=== PATIENT | female | born 1940 | race Caucasian/White ===

== ENCOUNTER 2021-08-19 20:29 | Inpatient (IN) | payer MEDICARE, BC ==
[~2021-08-19] VITALS: Ht 157.5 cm; Wt 58.7 kg
[2021-08-19 20:00] VITALS: BP 150/85
[2021-08-19] MEDS ORDERED: LINZESS145 MCG PO (21:20)
[2021-08-19] MEDS ORDERED: SENN-82 PO (21:21)
[2021-08-19] MEDS ORDERED: hydrALAZINE 20 MG/ML VIAL. IVP PRN (21:30)
[2021-08-19] MEDS ORDERED: ONDANSETRON PF 4 MG/2 ML VIAL. IVP PRN (21:30)
[2021-08-19] MEDS ORDERED: SENNOSIDES/DOCUSATE 8.6/50MG TABLET. PO PRN (21:30)
[2021-08-19] MEDS ORDERED: IV NORMAL SALINE 1000ML BAG 1,000 ML IV SCH (21:30)
[2021-08-19] MEDS ORDERED: traMADol 50 MG TABLET PO PRN (21:30)
[2021-08-19] MEDS ORDERED: POLYETHYLENE GLYCOL 3350 17 GM PACKET. PO PRN (21:30)
[2021-08-19] MEDS ORDERED: ACETAMINOPHEN 325 MG TABLET. PO PRN (21:30)
[2021-08-19] MEDS: fentaNYL PF VIAL 100 MCG/2 ML VIAL IVP PRN (22:04)
[2021-08-19 23:00] VITALS: BP 135/75
[2021-08-19] MEDS: PSYLLIUM HUSK (SUGAR FREE) 1 PKT PACKET PO SCH (23:33)
[2021-08-20] VITALS (8 sets, daily range): BP systolic 112–132; BP diastolic 59–78
[2021-08-20 04:12] LABS: HEMATOCRIT 33.1 % (36.0-47.0); HEMOGLOBIN 11.1 g/dL (12.0-15.5); RED BLOOD COUNT 3.71 x10^6/uL (3.50-5.40); RED CELL DISTRIBUTION WIDTH 14.4 % (11.5-14.5); WHITE BLOOD COUNT 8.9 x10^3/uL (4.0-11.0)
[2021-08-20 04:33] LABS: CREATININE 0.6 mg/dL (0.6-1.0); GFR 95.7; POTASSIUM 3.6 mmol/L (3.5-5.1)
[2021-08-20] MEDS: fentaNYL PF VIAL 100 MCG/2 ML VIAL IVP PRN ×3 (04:38→12:25)
[2021-08-20 06:50] LABS: BILIRUBIN,URINE NEGATIVE (NEG); CLARITY,URINE CLEAR; COLOR,URINE YELLOW; NITRITE,URINE NEGATIVE (NEG); PROTEIN,URINE NEGATIVE (NEG-TRACE); UROBILINOGEN,URINE 0.2 mg/dL (0.2 mg/dL)
[2021-08-20 07:32] LABS: BACTERIA,URINE 0 /HPF (0-FEW); WBC,URINE 0 /HPF (0-4)
[2021-08-20] MEDS ORDERED: fentaNYL PF VIAL 100 MCG/2 ML VIAL IVP PRN ×3 (08:45→16:00)
[2021-08-20] MEDS ORDERED: PROCHLORPERAZINE 10 MG/2 ML VIAL. IVP PRN (08:45)
[2021-08-20] MEDS ORDERED: MORPHINE SULFATE 2 MG/ML INJ. IVP PRN ×2 (08:45→16:00)
[2021-08-20] MEDS ORDERED: IV RINGERS,LACTATED 1000ML 1,000 ML IV SCH (08:45)
--- NOTE | 2021-08-20 08:59 | PDOC2 ---
CONSULT Date of Consult Date of Consult DATE: 08/20/21 TIME: 08:55 Reason for Consult Reason for Consult: Left comminuted Intertrochanteric hip fracture Referring Physician Referring Physician: ED Identification/Chief Complaint Chief Complaint Left Hip Pain secondary to Left hip Fracture History of Present Illness Reason for Visit: This is a well-appearing 82-year-old very active female who presents to the emergency department with chief complaint of a fall onto her left hip. Seen and examined in the emergency department x-rays were obtained which showed a comminuted left intertrochanteric hip fracture. She was admitted to the hospital under the hospitalist care with orthopedics to follow. Orthopedics was contacted x-rays were reviewed she was scheduled for a left hip open reduction internal fixation. Current Medications Current Medications Current Medications Acetaminophen (Tylenol) 650 mg PRN Q6HRS PRN PO MILD PAIN / TEMP > 100.3'F; Start 08/19/21 at 21:30 Tramadol HCl (Ultram) 50 mg PRN Q6HRS PRN PO PAIN MOD/SEV; Start 08/19/21 at 21:30 Ondansetron HCl (Zofran) 4 mg PRN Q4HRS PRN IVP NAUSEA/VOMITING; Start 08/19/21 at 21:30 Psyllium Hydrophilic Mucilloid (Metamucil Fiber Packet) 1 pkt QHS PO Last administered on 08/19/21at 23:33; Start 08/19/21 at 23:45 Hydralazine HCl (Apresoline Inj) 10 mg PRN Q4HRS PRN IVP ELEVATED BP, SEE COMMENTS; Start 08/19/21 at 21:30 Fentanyl Citrate (Fentanyl 2ml Vial) 25 mcg PRN Q3HRS PRN IVP PAIN Last administered on 08/20/21at 04:38; Start 08/19/21 at 21:30 Senna/Docusate Sodium (Senna Plus) 2 tab PRN BID PRN PO CONSTIPATION 2ND CHOICE; Start 08/19/21 at 21:30 Polyethylene Glycol (miraLAX PACKET) 17 gm PRN DAILY PRN PO CONSTIPATION 1ST CHOICE; Start 08/19/21 at 21:30 Sodium Chloride 1,000 ml @ 100 mls/hr Q10H IV Last administered on 08/19/21at 22:03; Start 08/19/21 at 21:30; Stop 08/20/21 at 07:29; Status DC Trazodone HCl (Desyrel) 50 mg PRN QHS PRN PO INSOMNIA; Start 08/19/21 at 21:30 Fentanyl Citrate (Fentanyl 2ml Vial) 25 mcg PRN Q5MIN PRN IVP MILD PAIN 1-3; Start 08/20/21 at 08:45; Stop 08/21/21 at 08:44 Fentanyl Citrate (Fentanyl 2ml Vial) 50 mcg PRN Q5MIN PRN IVP MODERATE PAIN 4- 6; Start 08/20/21 at 08:45; Stop 08/21/21 at 08:44 Morphine Sulfate (Morphine Sulfate) 1 mg PRN Q10MIN PRN IVP SEVERE PAIN 7-10; Start 08/20/21 at 08:45; Stop 08/21/21 at 08:44 Ringer's Solution 1,000 ml @ 30 mls/hr Q24H IV ; Start 08/20/21 at 08:45; Stop 08/20/21 at 20:44 Hydromorphone HCl (Dilaudid) 0.5 mg PRN Q10MIN PRN IVP SEVERE PAIN 7-10, 2nd CHOICE; Start 08/20/21 at 08:45; Stop 08/21/21 at 08:44 Prochlorperazine Edisylate (Compazine) 5 mg PACU PRN PRN IVP NAUSEA, MRX1; Start 08/20/21 at 08:45; Stop 08/21/21 at 08:44 Active Scripts Active Reported Senna S Tablet (Sennosides/Docusate Sodium) 1 Each Tablet 1 Each PO HS Linzess (Linaclotide) 145 Mcg Capsule 145 Mcg PO DAILY07 Allergies Allergies: Coded Allergies: No Known Drug Allergies (Unverified , 08/19/21) Physical Exam Physical Exam Patient was seen and examined today, her daughter was at the bedside, she was awake up and alert answering questions appropriately. Her examination of the left lower extremity reveals that she did have external rotation and shortening of the left lower extremity. She was neurovascularly intact, she had no calf tenderness, her skin was intact, her EHL and FHL were sustained and intact. There were no other obvious deformities. She did complain of some left forearm pain x-rays were negative. Vitals VITALS Vital Signs Date Time Temp Pulse Resp B/P (MAP) Pulse Ox O2 Delivery O2 Flow Rate FiO2 08/20/21 05:08 20 Room Air 08/20/21 03:00 98.1 96 126/71 (89) 94 98.1 Labs Labs Laboratory Tests Test 08/20/21 04:00 08/20/21 04:35 White Blood Count 8.9 x10^3/uL (4.0-11.0) Red Blood Count 3.71 x10^6/uL (3.50-5.40) Hemoglobin 11.1 g/dL (12.0-15.5) Hematocrit 33.1 % (36.0-47.0) Mean Corpuscular Volume 89 fL (79-100) Mean Corpuscular Hemoglobin 30 pg (25-35) Mean Corpuscular Hemoglobin Concent 34 g/dL (31-37) Red Cell Distribution Width 14.4 % (11.5-14.5) Platelet Count 212 x10^3/uL (140-400) Sodium Level 136 mmol/L (136-145) Potassium Level 3.6 mmol/L (3.5-5.1) Chloride Level 102 mmol/L (98-107) Carbon Dioxide Level 24 mmol/L (21-32) Anion Gap 10 (6-14) Blood Urea Nitrogen 13 mg/dL (7-20) Creatinine 0.6 mg/dL (0.6-1.0) Estimated GFR (Cockcroft-Gault) 95.7 Glucose Level 122 mg/dL (70-99) Calcium Level 8.0 mg/dL (8.5-10.1) Urine Collection Type Unknown Urine Color Yellow Urine Clarity Clear Urine pH 5.0 (<5.0-8.0) Urine Specific [place] 1.015 (1.000-1.030) Urine Protein Negative mg/dL (NEG-TRACE) Urine Glucose (UA) Negative mg/dL (NEG) Urine Ketones (Stick) 40 mg/dL (NEG) Urine Blood Large (NEG) Urine Nitrite Negative (NEG) Urine Bilirubin Negative (NEG) Urine Urobilinogen Dipstick 0.2 mg/dL (0.2 mg/dL) Urine Leukocyte Esterase Negative (NEG) Urine RBC 6-10 /HPF (0-2) Urine WBC 0 /HPF (0-4) Urine Squamous Epithelial Cells Occ /LPF Urine Bacteria 0 /HPF (0-FEW) Laboratory Tests Test 08/20/21 04:00 08/20/21 04:35 White Blood Count 8.9 x10^3/uL (4.0-11.0) Red Blood Count 3.71 x10^6/uL (3.50-5.40) Hemoglobin 11.1 g/dL (12.0-15.5) Hematocrit 33.1 % (36.0-47.0) Mean Corpuscular Volume 89 fL (79-100) Mean Corpuscular Hemoglobin 30 pg (25-35) Mean Corpuscular Hemoglobin Concent 34 g/dL (31-37) Red Cell Distribution Width 14.4 % (11.5-14.5) Platelet Count 212 x10^3/uL (140-400) Sodium Level 136 mmol/L (136-145) Potassium Level 3.6 mmol/L (3.5-5.1) Chloride Level 102 mmol/L (98-107) Carbon Dioxide Level 24 mmol/L (21-32) Anion Gap 10 (6-14) Blood Urea Nitrogen 13 mg/dL (7-20) Creatinine 0.6 mg/dL (0.6-1.0) Estimated GFR (Cockcroft-Gault) 95.7 Glucose Level 122 mg/dL (70-99) Calcium Level 8.0 mg/dL (8.5-10.1) Urine Collection Type Unknown Urine Color Yellow Urine Clarity Clear Urine pH 5.0 (<5.0-8.0) Urine Specific [place] 1.015 (1.000-1.030) Urine Protein Negative mg/dL (NEG-TRACE) Urine Glucose (UA) Negative mg/dL (NEG) Urine Ketones (Stick) 40 mg/dL (NEG) Urine Blood Large (NEG) Urine Nitrite Negative (NEG) Urine Bilirubin Negative (NEG) Urine Urobilinogen Dipstick 0.2 mg/dL (0.2 mg/dL) Urine Leukocyte Esterase Negative (NEG) Urine RBC 6-10 /HPF (0-2) Urine WBC 0 /HPF (0-4) Urine Squamous Epithelial Cells Occ /LPF Urine Bacteria 0 /HPF (0-FEW) Images Images comminuted left intertrochanteric hip fracture Assessment/Plan Assessment/Plan Patient was seen and examined today, daughter at her bedside, risks and complications of a left hip open reduction internal fixation were discussed with her in great detail as well as her daughter, all questions were answered to the best of the surgeons ability, she will be nonweightbearing until after surgery, she is n.p.o., pain control, consent for open reduction internal fixation left hip, she will be admitted back to the hospital for antibiotics ice elevation as well as physical therapy occupational therapy and case management. ALANA MCDONALD DO Aug 20, 2021 08:59
--- NOTE | 2021-08-20 10:11 | PDOC ---
GENERAL General: History and physical [id number] VITAL SIGNS Vital Signs/I&O: Vital Signs Date Time Temp Pulse Resp B/P (MAP) Pulse Ox O2 Delivery O2 Flow Rate FiO2 08/20/21 08:56 Room Air 08/20/21 07:00 97.8 73 16 132/63 (86) 95 97.8 I & O 08/19/21 08/19/21 08/20/21 15:00 23:00 07:00 Intake Total 0 ml 100 ml Output Total 300 ml Balance 0 ml -200 ml ALLERGIES Allergies: Allergies Coded Allergies Type Severity Reaction Last Updated Verified No Known Drug Allergies 08/19/21 No MEDS Medications: Current Medications Medications (Trade) Dose Ordered Sig/Camron Route PRN Reason Start Time Stop Time Status Last Admin Dose Admin Psyllium Hydrophilic Mucilloid (Metamucil Fiber Packet) 1 pkt QHS PO 08/19/21 23:45 08/19/21 23:33 Fentanyl Citrate (Fentanyl 2ml Vial) 25 mcg PRN Q3HRS PRN IVP PAIN 08/19/21 21:30 08/20/21 08:56 Sodium Chloride 1,000 ml @ 100 mls/hr Q10H IV 08/19/21 21:30 08/20/21 07:29 DC 08/19/21 22:03 LAB Lab: Laboratory Tests Test 08/20/21 04:00 08/20/21 04:35 White Blood Count 8.9 x10^3/uL (4.0-11.0) Red Blood Count 3.71 x10^6/uL (3.50-5.40) Hemoglobin 11.1 g/dL (12.0-15.5) L Hematocrit 33.1 % (36.0-47.0) L Mean Corpuscular Volume 89 fL (79-100) Mean Corpuscular Hemoglobin 30 pg (25-35) Mean Corpuscular Hemoglobin Concent 34 g/dL (31-37) Red Cell Distribution Width 14.4 % (11.5-14.5) Platelet Count 212 x10^3/uL (140-400) Sodium Level 136 mmol/L (136-145) Potassium Level 3.6 mmol/L (3.5-5.1) Chloride Level 102 mmol/L (98-107) Carbon Dioxide Level 24 mmol/L (21-32) Anion Gap 10 (6-14) Blood Urea Nitrogen 13 mg/dL (7-20) Creatinine 0.6 mg/dL (0.6-1.0) Estimated GFR (Cockcroft-Gault) 95.7 Glucose Level 122 mg/dL (70-99) H Calcium Level 8.0 mg/dL (8.5-10.1) L Urine Collection Type Unknown Urine Color Yellow Urine Clarity Clear Urine pH 5.0 (<5.0-8.0) Urine Specific [place] 1.015 (1.000-1.030) Urine Protein Negative mg/dL (NEG-TRACE) Urine Glucose (UA) Negative mg/dL (NEG) Urine Ketones (Stick) 40 mg/dL (NEG) Urine Blood Large (NEG) Urine Nitrite Negative (NEG) Urine Bilirubin Negative (NEG) Urine Urobilinogen Dipstick 0.2 mg/dL (0.2 mg/dL) Urine Leukocyte Esterase Negative (NEG) Urine RBC 6-10 /HPF (0-2) Urine WBC 0 /HPF (0-4) Urine Squamous Epithelial Cells Occ /LPF Urine Bacteria 0 /HPF (0-FEW) Laboratory Tests 08/20/21 04:00 Laboratory Tests 08/20/21 04:00 Justifications for Admission General Conditions Other justification for admit: fracture Other Justification MILDRED NICOLE MD Aug 20, 2021 10:11
[2021-08-20] MEDS: ENOXAPARIN 40 MG/0.4 ML SYRINGE. SQ SCH (11:00)
--- NOTE | 2021-08-20 11:07 | HP ---
DATE OF SERVICE: 08/20/2021 ADMIT DATE: 08/19/2021 HISTORY OF PRESENT ILLNESS: This patient is a yesica 81-year-old woman who is a continuity outpatient of Dr. Demetrius Gorman in [place], [place]. She is accompanied at bedside by her daughter, [place] and her daughter, Litzy, is coming in. 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 The patient enjoys excellent health for her years. Was at a social gathering actually at her doctor's home last evening when she tripped and fell over a hidden stair sustaining a left hip fracture. She is very frustrated by this given that she has never been in the hospital. She is quite anxious about her situation, though does recognize that accidents do happen. She denies any preceding symptoms to the fall including no chest pain, no palpitations, no headache, no shortness of breath, no nausea or vomiting. She enjoys very vigorous health for her 81 years. She has been seen by Orthopedics already and plan is for surgical repair today. REVIEW OF SYSTEMS: All other systems reviewed and negative. PAST MEDICAL HISTORY: IBS, constipation. The patient denies any cardiopulmonary history. She has never had any surgery. MEDICATIONS: Please see the medication reconciliation form. SOCIAL HISTORY: The patient is . 3 years ago. She lives independently in her own home and daughters check up on her regularly. She does not take any tobacco, alcohol or illicit drugs. The patient is a full code. FAMILY HISTORY: Reviewed in full and noncontributory to the present illness. PHYSICAL EXAMINATION: VITAL SIGNS: Reviewed since admission and are notable for that the patient has been afebrile. Blood pressure has been in the 120s/70s, heart rate is in the 70s-90s and regular. She is breathing comfortably and saturating 95% on room air. GENERAL: She is a pleasant 81-year-old woman, alert and oriented x 3, in no acute distress. HEENT: Unremarkable. NECK: Soft and supple. No adenopathy or thyromegaly noted. CHEST: Clear to auscultation. HEART: S1, S2 normal. Regular rate and rhythm. No murmurs or gallops are noted. ABDOMEN: Soft, nontender, and nondistended. No masses or organomegaly noted. EXTREMITIES: Notable for a shortened outward turned left lower extremity. Pulses are intact. No edema, rashes or lesions are noted. LABS AND OTHER STUDIES: Reviewed from [facility] Emergency Department. EKG is reportedly normal. I cannot find a copy of it in the files here. Left humerus x-ray is normal. Left hip x-ray is notable for an impacted comminuted fracture of the left intertrochanteric femur. Labs are notable for a white count of 12.3, hemoglobin of 12.6, and platelet count of 248. Calcium level is 8.8, random glucose 111, and creatinine is 0.9. Electrolytes are unremarkable. ASSESSMENT AND PLAN/IMPRESSION: An 81-year-old woman sustaining a mechanical fall resulting in a left hip fracture late yesterday afternoon, planning on operative repair today. Orthopedic assistance is appreciated. Inpatient status is most appropriate as we anticipate a length of stay of at least 2-3 midnights while we work this through. The patient does live alone, though she does have excellent family support. We will need to consult social media director and Physical and Occupational Therapy to help with disposition planning following the repair. We will use sequential compression devices for deep vein thrombosis prophylaxis and defer to Orthopedics regarding perioperative deep vein thrombosis prophylaxis. Certainly low-dose Lovenox would be appropriate in her situation. We will continue her home medications per prior postoperatively. ALLIE/RAIN/SOT DR: ALLIE/nts TID: [id number] CC: Mayra PICKERING
[2021-08-20] MEDS ORDERED: ceFAZolin SODIUM IV Push 1 GM VIAL. IVP PRN (12:00)
[2021-08-20] MEDS ORDERED: MIDAZOLAM HCL/PF 2 MG/2 ML VIAL. ONE (13:27)
[2021-08-20] MEDS ORDERED: MIDAZOLAM HCL/PF 5 MG/5 ML VIAL. IVP ONE (13:45)
[2021-08-20] MEDS ORDERED: LIDOCAINE 2% PF 5 ML VIAL. ONE (14:16)
[2021-08-20] MEDS ORDERED: DEXAMETHASONE SOD PHOS 4 MG/ML VIAL ONE (14:16)
[2021-08-20] MEDS ORDERED: PROPOFOL 10 MG/ML (20ML) VIAL. IV ONE (14:16)
[2021-08-20] MEDS ORDERED: ONDANSETRON PF 4 MG/2 ML VIAL. ONE (14:17)
[2021-08-20] MEDS ORDERED: fentaNYL PF VIAL 100 MCG/2 ML VIAL ONE ×2 (14:18→16:23)
[2021-08-20] MEDS ORDERED: ceFAZolin SODIUM IV Push 1 GM VIAL. IVP ONE ×2 (15:20)
[2021-08-20] MEDS ORDERED: SEVOFLURANE 31 TO 60 MINUTES. IH ONE (15:21)
[2021-08-20] MEDS ORDERED: PHENYLEPHRINE in 0.9% NACL PF 1 MG/10 ML SYRINGE. IV ONE (15:29)
[2021-08-20] MEDS ORDERED: ePHEDrine PF IN SALINE 50 MG/10 ML SYRINGE. IV ONE (15:29)
[2021-08-20] MEDS ORDERED: DEXTROSE 50% 25 GM / 50ML DISP.SYRIN. IV PRN (16:00)
[2021-08-20] MEDS ORDERED: POLYETHYLENE GLYCOL 3350 17 GM PACKET. PO PRN (16:00)
[2021-08-20] MEDS ORDERED: HYDROcodone/APAP 7.5/325MG 1 TAB TABLET PO PRN (16:00)
[2021-08-20] MEDS ORDERED: oxyCODONE IR 5 MG TABLET PO PRN (16:00)
[2021-08-20] MEDS ORDERED: ONDANSETRON PF 4 MG/2 ML VIAL. IVP PRN (16:00)
[2021-08-20] MEDS ORDERED: MORPHINE SULFATE 4 MG/ML INJ. IVP PRN (16:00)
--- NOTE | 2021-08-20 16:08 | PDOC4 ---
OPERATIVE NOTE Pre-Op Diagnosis: Comminuted left intertrochanteric hip fracture Post-Op Diagnosis: Same Procedure Performed: Open reduction internal fixation left hip with [employer] InterTAN nail Surgeon: Ki Kay DO Anesthesia Type: General Blood Loss: 50 mL Specimans Obtained: None Findings: Comminuted inter trochanteric left hip fracture Complications: None Operative Note: Indications: This is a well-appearing 81-year-old very active female who presented to the emergency department after a fall at a friend's house onto her left hip sustaining a comminuted into her trochanteric left hip fracture. She was brought to the emergency department per ambulance where she was seen and examined x-rays were obtained which confirmed the diagnosis. She was admitted to the hospital under the hospitalist care. She was seen and examined by the orthopedic department and scheduled for an open reduction internal fixation of her left hip. Risk and complications of the surgery were discussed with her and her family member in great detail they agreed to risk and complications informed consent was obtained. All questions were answered to the best of the surgeons ability. Procedure: After being properly Genfiber the part of anesthesia her upper extremity was then marked she is and taken from the preoperative care into the operative suite taken from the cart placed onto the table in supine position. After he placed in the supine position general anesthesia was administered to the patient per anesthesia protocol, 1 g Ancef was given to the patient preoperatively she is properly positioned on the fracture table. Closed reduction of the fracture was done under direct fluoroscopic control. After this was completed all bony prominences were padded she was prepped and draped in normal sterile fashion. Final timeout was then performed. After is complete the appropriate starting hole for the [employer] InterTAN nail was identified in the AP and lateral projections. The guidewire was then placed in the appropriate position and confirmed in the AP and lateral positions. The reamer was used over the guidewire a 11.5 mm nail was then placed over and placed in appropriate position. After this was completed the incision was made in the lateral skin for the compression screw. Under direct fluoroscopic control lateral screw was then drilled as well as measured and confirmed in both AP and lateral positions. After this completed the measurement was 110 we took 5 mm off but decided to take 10 instead of 5 for compression. 100 mm screw was then placed in this was confirmed in AP and lateral projections as well. Attention was paid to the distal locking screw which was placed in a normal fashion. After this complete she was irrigated with copious amounts of irrigation final x-rays were completed in AP and lateral projections the incision was then closed with 0 Vicryl 2-0 Vicryl and dax for skin sterile dressing was then applied she was gently wrapped with a part of anesthesia taken from the table placed onto the cart in the supine position having tolerated procedure well to the postoperative care unit. KI KAY DO Aug 20, 2021 16:08
[2021-08-20] MEDS ORDERED: HYDROmorphone 2 MG/ML VIAL ONE (16:10)
[2021-08-20] MEDS: HYDROmorphone 2 MG/ML VIAL IVP PRN ×4 (16:12→16:48)
[2021-08-20] MEDS ORDERED: PROCHLORPERAZINE 10 MG/2 ML VIAL. ONE (16:14)
--- NOTE | 2021-08-20 16:35 | RAD ---
EXAM: Pelvis and left hip, 3 views. HISTORY: Fracture fixation. COMPARISON: None. FINDINGS: A frontal view of the pelvis and 2 views of the left hip are obtained. There is internal fi xation of a left femoral intertrochanteric fracture. There is lumbar scoliosis and degenerative hanson e throughout the lumbar spine, not formally assessed on this exam. There are lateral left hip skin st aples due to recent surgery. IMPRESSION: Internal fixation of a left femoral intertrochanteric fracture. Electronically signed by: Shruti [place] MD (08/20/2021 4:33 PM) [id number]
[2021-08-20] MEDS: PSYLLIUM HUSK (SUGAR FREE) 1 PKT PACKET PO SCH (21:28)
[2021-08-20] MEDS: ceFAZolin SODIUM IV Push 1 GM VIAL. IVP SCH (21:29)
[2021-08-21] MEDS: traZODone 50 MG TABLET. PO PRN ×2 (00:24→20:50)
[2021-08-21 03:00] VITALS: BP 115/63
[2021-08-21] MEDS: HYDROcodone/APAP 7.5/325MG 1 TAB TABLET PO PRN ×3 (03:28→16:33)
[2021-08-21] MEDS: ceFAZolin SODIUM IV Push 1 GM VIAL. IVP SCH ×2 (03:28→08:46)
[2021-08-21 04:37] LABS: BASO % 0 % (0-3); EOS % 0 % (0-3); HEMATOCRIT 30.1 % (36.0-47.0); LYMPH # 0.8 x10^3/uL (1.0-4.8); LYMPH % 11 % (24-48); MEAN CORPUSCULAR HEMOGLOBIN 30 pg (25-35); MEAN CORPUSCULAR HGB CONC 33 g/dL (31-37); MEAN CORPUSCULAR VOLUME 90 fL (79-100); MONO # 0.9 x10^3/uL (0.0-1.1); MONO % 11 % (0-9); NEUT % 78 % (31-73); PLATELET COUNT 187 x10^3/uL (140-400); RED BLOOD COUNT 3.37 x10^6/uL (3.50-5.40); RED CELL DISTRIBUTION WIDTH 14.8 % (11.5-14.5); WHITE BLOOD COUNT 7.7 x10^3/uL (4.0-11.0)
[2021-08-21 05:13] LABS: ALBUMIN 2.7 g/dL (3.4-5.0); ALBUMIN/GLOBULIN RATIO 0.9 (1.0-1.7); CALCIUM 7.9 mg/dL (8.5-10.1); CREATININE 0.6 mg/dL (0.6-1.0); GFR 95.7; TOTAL BILIRUBIN 0.5 mg/dL (0.2-1.0); TOTAL PROTEIN 5.8 g/dL (6.4-8.2)
[2021-08-21] MEDS ORDERED: MAGNESIUM HYDROXIDE 2,400 MG/30 ML ORAL.SUSP. PO PRN (06:00)
[2021-08-21 07:00] VITALS: BP 125/62
--- NOTE | 2021-08-21 07:30 | PDOC ---
ORTHO PROGRESS NOTES DATE: 08/21/21 TIME: 07:28 Subjective Patient doing well postop day 1 from her open reduction internal fixation of her left intertrochanteric hip fracture. She is a little anxious about moving but I encouraged her that the fracture was fixed and that she could get up and move around. She agreed and she is going to physical therapy today. Post-op Day: 1 Procedure Open reduction internal fixation left intertrochanteric hip fracture postop day 1 Vitals Vital Signs Date Time Temp Pulse Resp B/P (MAP) Pulse Ox O2 Delivery O2 Flow Rate FiO2 08/21/21 03:58 20 Room Air 08/21/21 03:00 98.2 97 115/63 (80) 92 98.2 08/20/21 23:00 3.0 Labs Laboratory Tests Test 08/20/21 04:00 08/20/21 04:35 08/21/21 03:35 08/21/21 03:50 White Blood Count 8.9 x10^3/uL (4.0-11.0) 7.7 x10^3/uL (4.0-11.0) Red Blood Count 3.71 x10^6/uL (3.50-5.40) 3.37 x10^6/uL (3.50-5.40) Hemoglobin 11.1 g/dL (12.0-15.5) 10.0 g/dL (12.0-15.5) Hematocrit 33.1 % (36.0-47.0) 30.1 % (36.0-47.0) Mean Corpuscular Volume 89 fL (79-100) 90 fL (79-100) Mean Corpuscular Hemoglobin 30 pg (25-35) 30 pg (25-35) Mean Corpuscular Hemoglobin Concent 34 g/dL (31-37) 33 g/dL (31-37) Red Cell Distribution Width 14.4 % (11.5-14.5) 14.8 % (11.5-14.5) Platelet Count 212 x10^3/uL (140-400) 187 x10^3/uL (140-400) Sodium Level 136 mmol/L (136-145) 141 mmol/L (136-145) Potassium Level 3.6 mmol/L (3.5-5.1) 4.0 mmol/L (3.5-5.1) Chloride Level 102 mmol/L (98-107) 105 mmol/L (98-107) Carbon Dioxide Level 24 mmol/L (21-32) 27 mmol/L (21-32) Anion Gap 10 (6-14) 9 (6-14) Blood Urea Nitrogen 13 mg/dL (7-20) 10 mg/dL (7-20) Creatinine 0.6 mg/dL (0.6-1.0) 0.6 mg/dL (0.6-1.0) Estimated GFR (Cockcroft-Gault) 95.7 95.7 Glucose Level 122 mg/dL (70-99) 119 mg/dL (70-99) Calcium Level 8.0 mg/dL (8.5-10.1) 7.9 mg/dL (8.5-10.1) Urine Collection Type Unknown Urine Color Yellow Urine Clarity Clear Urine pH 5.0 (<5.0-8.0) Urine Specific [place] 1.015 (1.000-1.030) Urine Protein Negative mg/dL (NEG-TRACE) Urine Glucose (UA) Negative mg/dL (NEG) Urine Ketones (Stick) 40 mg/dL (NEG) Urine Blood Large (NEG) Urine Nitrite Negative (NEG) Urine Bilirubin Negative (NEG) Urine Urobilinogen Dipstick 0.2 mg/dL (0.2 mg/dL) Urine Leukocyte Esterase Negative (NEG) Urine RBC 6-10 /HPF (0-2) Urine WBC 0 /HPF (0-4) Urine Squamous Epithelial Cells Occ /LPF Urine Bacteria 0 /HPF (0-FEW) Neutrophils (%) (Auto) 78 % (31-73) Lymphocytes (%) (Auto) 11 % (24-48) Monocytes (%) (Auto) 11 % (0-9) Eosinophils (%) (Auto) 0 % (0-3) Basophils (%) (Auto) 0 % (0-3) Neutrophils # (Auto) 6.0 x10^3/uL (1.8-7.7) Lymphocytes # (Auto) 0.8 x10^3/uL (1.0-4.8) Monocytes # (Auto) 0.9 x10^3/uL (0.0-1.1) Eosinophils # (Auto) 0.0 x10^3/uL (0.0-0.7) Basophils # (Auto) 0.0 x10^3/uL (0.0-0.2) BUN/Creatinine Ratio 17 (6-20) Total Bilirubin 0.5 mg/dL (0.2-1.0) Aspartate Amino Transf (AST/SGOT) 25 U/L (15-37) Alanine Aminotransferase (ALT/SGPT) 21 U/L (14-59) Alkaline Phosphatase 52 U/L (46-116) Total Protein 5.8 g/dL (6.4-8.2) Albumin 2.7 g/dL (3.4-5.0) Albumin/Globulin Ratio 0.9 (1.0-1.7) Laboratory Tests Test 08/21/21 03:35 08/21/21 03:50 White Blood Count 7.7 x10^3/uL (4.0-11.0) Red Blood Count 3.37 x10^6/uL (3.50-5.40) Hemoglobin 10.0 g/dL (12.0-15.5) Hematocrit 30.1 % (36.0-47.0) Mean Corpuscular Volume 90 fL (79-100) Mean Corpuscular Hemoglobin 30 pg (25-35) Mean Corpuscular Hemoglobin Concent 33 g/dL (31-37) Red Cell Distribution Width 14.8 % (11.5-14.5) Platelet Count 187 x10^3/uL (140-400) Neutrophils (%) (Auto) 78 % (31-73) Lymphocytes (%) (Auto) 11 % (24-48) Monocytes (%) (Auto) 11 % (0-9) Eosinophils (%) (Auto) 0 % (0-3) Basophils (%) (Auto) 0 % (0-3) Neutrophils # (Auto) 6.0 x10^3/uL (1.8-7.7) Lymphocytes # (Auto) 0.8 x10^3/uL (1.0-4.8) Monocytes # (Auto) 0.9 x10^3/uL (0.0-1.1) Eosinophils # (Auto) 0.0 x10^3/uL (0.0-0.7) Basophils # (Auto) 0.0 x10^3/uL (0.0-0.2) Sodium Level 141 mmol/L (136-145) Potassium Level 4.0 mmol/L (3.5-5.1) Chloride Level 105 mmol/L (98-107) Carbon Dioxide Level 27 mmol/L (21-32) Anion Gap 9 (6-14) Blood Urea Nitrogen 10 mg/dL (7-20) Creatinine 0.6 mg/dL (0.6-1.0) Estimated GFR (Cockcroft-Gault) 95.7 BUN/Creatinine Ratio 17 (6-20) Glucose Level 119 mg/dL (70-99) Calcium Level 7.9 mg/dL (8.5-10.1) Total Bilirubin 0.5 mg/dL (0.2-1.0) Aspartate Amino Transf (AST/SGOT) 25 U/L (15-37) Alanine Aminotransferase (ALT/SGPT) 21 U/L (14-59) Alkaline Phosphatase 52 U/L (46-116) Total Protein 5.8 g/dL (6.4-8.2) Albumin 2.7 g/dL (3.4-5.0) Albumin/Globulin Ratio 0.9 (1.0-1.7) Notes Patient seen and examined today, she is doing very well no signs or symptoms of infection, neurovascular intact EHL FHL sustained and intact no calf tenderness dressing in place without any drainage. Assessment and Plan Postop day 1 left hip open reduction internal fixation secondary to intertrochanteric hip fracture. She is doing well, no signs of infection, continue your medical care, up in chair and weightbearing as tolerated with walker and assist, physical therapy and Occupational Therapy to assist with activities of daily living. Orthopedically stable for discharge when okay with hospitalist service ALANA MCDONALD DO Aug 21, 2021 07:30
[2021-08-21] MEDS: SENNOSIDES/DOCUSATE 8.6/50MG TABLET. PO SCH (08:46)
--- NOTE | 2021-08-21 10:23 | NUR ---
SW following. Discussed with RN, pt from home alone, room air, NPO. Pt had surgery 08/20. Awaiting PT/OT. COVID PCR requested for possible placement. SW will continue to follow.
[2021-08-21 11:00] VITALS: BP 137/78
[2021-08-21] MEDS: ENOXAPARIN 40 MG/0.4 ML SYRINGE. SQ SCH (11:10)
--- NOTE | 2021-08-21 12:03 | PDOC ---
[employer] PROGRESS NOTE Date of Service DOS: DATE: 08/21/21 TIME: 12:01 Chief Complaint Chief Complaint Postop day 1 open reduction internal fixation left hip fracture IBS Constipation Arthritis Anxiety History of Present Illness History of Present Illness 08/21/2021 Patient seen and examined She is a little anxious about making sure she gets her pain meds prior to physical therapy Discussed with RN Also spoke with the patient's daughter who is her DPOA Chart reviewed Overall patient is doing very well Has clean dry intact dressing Vitals/I&O Vitals/I&O: Vital Signs Date Time Temp Pulse Resp B/P (MAP) Pulse Ox O2 Delivery O2 Flow Rate FiO2 08/21/21 11:09 Room Air 08/21/21 11:00 98.2 107 16 137/78 (97) 92 98.2 08/20/21 23:00 3.0 I & O 08/20/21 08/20/21 08/21/21 15:00 23:00 07:00 Intake Total 50 ml 650 ml Output Total 50 ml 750 ml Balance 0 ml -100 ml Physical Exam General: Alert, Oriented X3 Heart: Regular rate, Normal S1, Normal S2 Lungs: Clear Abdomen: Normal bowel sounds Extremities: No clubbing, No cyanosis, Other (Clean dry intact dressing on the left hip) Skin: No rashes Labs Labs: Laboratory Tests Test 08/21/21 03:35 08/21/21 03:50 White Blood Count 7.7 x10^3/uL (4.0-11.0) Red Blood Count 3.37 x10^6/uL (3.50-5.40) Hemoglobin 10.0 g/dL (12.0-15.5) Hematocrit 30.1 % (36.0-47.0) Mean Corpuscular Volume 90 fL (79-100) Mean Corpuscular Hemoglobin 30 pg (25-35) Mean Corpuscular Hemoglobin Concent 33 g/dL (31-37) Red Cell Distribution Width 14.8 % (11.5-14.5) Platelet Count 187 x10^3/uL (140-400) Neutrophils (%) (Auto) 78 % (31-73) Lymphocytes (%) (Auto) 11 % (24-48) Monocytes (%) (Auto) 11 % (0-9) Eosinophils (%) (Auto) 0 % (0-3) Basophils (%) (Auto) 0 % (0-3) Neutrophils # (Auto) 6.0 x10^3/uL (1.8-7.7) Lymphocytes # (Auto) 0.8 x10^3/uL (1.0-4.8) Monocytes # (Auto) 0.9 x10^3/uL (0.0-1.1) Eosinophils # (Auto) 0.0 x10^3/uL (0.0-0.7) Basophils # (Auto) 0.0 x10^3/uL (0.0-0.2) Sodium Level 141 mmol/L (136-145) Potassium Level 4.0 mmol/L (3.5-5.1) Chloride Level 105 mmol/L (98-107) Carbon Dioxide Level 27 mmol/L (21-32) Anion Gap 9 (6-14) Blood Urea Nitrogen 10 mg/dL (7-20) Creatinine 0.6 mg/dL (0.6-1.0) Estimated GFR (Cockcroft-Gault) 95.7 BUN/Creatinine Ratio 17 (6-20) Glucose Level 119 mg/dL (70-99) Calcium Level 7.9 mg/dL (8.5-10.1) Total Bilirubin 0.5 mg/dL (0.2-1.0) Aspartate Amino Transf (AST/SGOT) 25 U/L (15-37) Alanine Aminotransferase (ALT/SGPT) 21 U/L (14-59) Alkaline Phosphatase 52 U/L (46-116) Total Protein 5.8 g/dL (6.4-8.2) Albumin 2.7 g/dL (3.4-5.0) Albumin/Globulin Ratio 0.9 (1.0-1.7) Review of Systems Review of Systems: Complains of pain Complains of anxiety Assessment and Plan Assessmemt and Plan Postop day 1 open reduction internal fixation left hip fracture IBS Constipation Arthritis Anxiety Plan Wound care Trend labs Home meds DVT prophylaxis Full code PT OT As needed pain meds Suspect she will need to go to [facility] (she wants to go to one in [place] such as [place]) Appreciate subspecialist input Comment Review of Relevant I have reviewed the following items lauren (where applicable) has been applied. Medications: Current Medications Medications (Trade) Dose Ordered Sig/Camron Route PRN Reason Start Time Stop Time Status Last Admin Dose Admin Midazolam HCl (Versed) 2 mg 1X PACU ONCE IVP 08/20/21 13:45 08/20/21 13:46 DC 08/20/21 13:45 Fentanyl Citrate (Fentanyl 2ml Vial) 25 mcg PRN Q1HR PRN IVP SEVERE PAIN 7-10 08/20/21 16:00 08/20/21 22:26 Senna/Docusate Sodium (Senna Plus) 1 tab DAILY PO 08/21/21 09:00 08/21/21 08:46 Acetaminophen/ Hydrocodone Bitart (Lortab 7.5/325) 1 tab PRN Q4HRS PRN PO PAIN 08/20/21 16:00 08/21/21 11:09 Cefazolin Sodium (Ancef) 1 gm Q6H IVP 08/20/21 21:00 08/21/21 09:01 DC 08/21/21 08:46 Justifications for Admission General Conditions Other justification for admit: fracture Other Justification DAVID CHINCHILLA III DO Aug 21, 2021 12:03
[2021-08-21 15:00] VITALS: BP 105/59
[2021-08-21] MEDS ORDERED: BISACODYL 10 MG SUPP.RECT. PR PRN (16:00)
[2021-08-21 19:00] VITALS: BP 117/62
[2021-08-21] MEDS: PSYLLIUM HUSK (SUGAR FREE) 1 PKT PACKET PO SCH (20:49)
[2021-08-21 23:00] VITALS: BP 111/49
[2021-08-22 03:00] VITALS: BP 95/49
[2021-08-22 05:07] LABS: HEMATOCRIT 28.4 % (36.0-47.0); HEMOGLOBIN 9.4 g/dL (12.0-15.5); RED BLOOD COUNT 3.17 x10^6/uL (3.50-5.40); WHITE BLOOD COUNT 8.7 x10^3/uL (4.0-11.0)
[2021-08-22 05:22] LABS: CALCIUM 8.2 mg/dL (8.5-10.1); CREATININE 0.8 mg/dL (0.6-1.0); GFR 68.7; POTASSIUM 3.8 mmol/L (3.5-5.1)
[2021-08-22 07:00] VITALS: BP 90/46
[2021-08-22] MEDS: SENNOSIDES/DOCUSATE 8.6/50MG TABLET. PO SCH (08:54)
[2021-08-22 11:00] VITALS: BP 106/52
[2021-08-22] MEDS: ENOXAPARIN 40 MG/0.4 ML SYRINGE. SQ SCH (11:31)
[2021-08-22] MEDS: HYDROcodone/APAP 7.5/325MG 1 TAB TABLET PO PRN ×2 (11:31→18:32)
--- NOTE | 2021-08-22 12:58 | PDOC ---
[employer] PROGRESS NOTE Date of Service DOS: DATE: 08/22/21 TIME: 12:25 Chief Complaint Chief Complaint Postop day 1 open reduction internal fixation left hip fracture IBS Constipation Arthritis Anxiety History of Present Illness History of Present Illness 08/20 ORIF left hip 08/21: She is a little anxious about making sure she gets her pain meds prior to physical therapy. Also spoke with the patient's daughter who is her DPOA. Has clean dry intact dressing 08/22: Patient seen and examined. Hb 9.4, metabolic panel within normal limits. [facility] Vitals/I&O: Vital Signs Date Time Temp Pulse Resp B/P (MAP) Pulse Ox O2 Delivery O2 Flow Rate FiO2 08/22/21 11:31 Room Air 08/22/21 11:00 98.0 97 18 106/52 (70) 91 98.0 I & O 08/21/21 08/21/21 08/22/21 15:00 23:00 07:00 Intake Total 240 ml 200 ml Output Total 750 ml Balance 240 ml 200 ml -750 ml Physical Exam General: Alert, Oriented X3 Heart: Regular rate, Normal S1, Normal S2 Lungs: Clear Abdomen: Normal bowel sounds Extremities: No clubbing, No cyanosis, Other (Clean dry intact dressing on the left hip) Skin: No rashes Labs Labs: Laboratory Tests Test 08/22/21 04:20 08/22/21 04:25 08/22/21 09:30 Sodium Level 137 mmol/L (136-145) Potassium Level 3.8 mmol/L (3.5-5.1) Chloride Level 104 mmol/L (98-107) Carbon Dioxide Level 29 mmol/L (21-32) Anion Gap 4 (6-14) Blood Urea Nitrogen 14 mg/dL (7-20) Creatinine 0.8 mg/dL (0.6-1.0) Estimated GFR (Cockcroft-Gault) 68.7 Glucose Level 118 mg/dL (70-99) Calcium Level 8.2 mg/dL (8.5-10.1) White Blood Count 8.7 x10^3/uL (4.0-11.0) Red Blood Count 3.17 x10^6/uL (3.50-5.40) Hemoglobin 9.4 g/dL (12.0-15.5) Hematocrit 28.4 % (36.0-47.0) Mean Corpuscular Volume 90 fL (79-100) Mean Corpuscular Hemoglobin 30 pg (25-35) Mean Corpuscular Hemoglobin Concent 33 g/dL (31-37) Red Cell Distribution Width 15.0 % (11.5-14.5) Platelet Count 187 x10^3/uL (140-400) SARS-CoV-2 Antigen (Rapid) Negative (NEGATIVE) Comment Review of Relevant I have reviewed the following items lauren (where applicable) has been applied. Justifications for Admission General Conditions Other justification for admit: fracture Other Justification AUNDREA BOUDREAUX MD Aug 22, 2021 12:58
[2021-08-22 15:00] VITALS: BP 109/50
--- NOTE | 2021-08-22 16:17 | NUR ---
SW following. Discussed with RN, therapy recommending SNF. Pt agreeable and wants [facility]. Referral phoned and faxed. Pt accepted for transfer tomorrow. PCR COVID pending. SW will continue to follow.
[2021-08-22 19:00] VITALS: BP 152/50
[2021-08-22] MEDS: PSYLLIUM HUSK (SUGAR FREE) 1 PKT PACKET PO SCH (20:22)
[2021-08-22] MEDS: traZODone 50 MG TABLET. PO PRN (20:22)
[2021-08-23 04:37] LABS: CALCIUM 8.2 mg/dL (8.5-10.1); CREATININE 0.7 mg/dL (0.6-1.0); GFR 80.1; POTASSIUM 3.7 mmol/L (3.5-5.1)
[2021-08-23 07:00] VITALS: BP 120/55
--- NOTE | 2021-08-23 08:28 | PDOC ---
[employer] PROGRESS NOTE Date of Service DOS: DATE: 08/23/21 TIME: 08:24 Chief Complaint Chief Complaint Postop day 3 open reduction internal fixation left hip fracture IBS Constipation Arthritis Anxiety History of Present Illness History of Present Illness 08/20 ORIF left hip 08/21: She is a little anxious about making sure she gets her pain meds prior to physical therapy. Also spoke with the patient's daughter who is her DPOA. Has clean dry intact dressing 08/22: Patient seen and examined. Hb 9.4, metabolic panel within normal limits. Discussed with daughter bedside to have requested [facility] 08/23 Patient seen and examined Patient is post op day 3 for ORIF left hip surgery, has been working with PT Has clean dry intact dressing Discussed with RN Chart Reviewed Probable discharge to [facility] later today Vitals/I&O Vitals/I&O: Vital Signs Date Time Temp Pulse Resp B/P (MAP) Pulse Ox O2 Delivery O2 Flow Rate FiO2 08/23/21 03:00 18 08/22/21 20:00 Room Air 08/22/21 19:02 96 08/22/21 19:00 98.5 109 152/50 (84) 98.5 I & O 08/22/21 08/22/21 08/23/21 15:00 23:00 07:00 Intake Total 670 ml 200 ml Balance 670 ml 200 ml Physical Exam General: Alert, Oriented X3 Heart: Regular rate, Normal S1, Normal S2 Lungs: Clear Abdomen: Normal bowel sounds Extremities: No clubbing, No cyanosis, Other (Clean dry intact dressing on the left hip) Skin: No rashes Labs Labs: Laboratory Tests Test 08/22/21 09:00 08/22/21 09:30 08/23/21 03:25 SARS-CoV-2 RNA (MALIA) Negative (Negative) SARS-CoV-2 Antigen (Rapid) Negative (NEGATIVE) Sodium Level 140 mmol/L (136-145) Potassium Level 3.7 mmol/L (3.5-5.1) Chloride Level 104 mmol/L (98-107) Carbon Dioxide Level 28 mmol/L (21-32) Anion Gap 8 (6-14) Blood Urea Nitrogen 15 mg/dL (7-20) Creatinine 0.7 mg/dL (0.6-1.0) Estimated GFR (Cockcroft-Gault) 80.1 Glucose Level 106 mg/dL (70-99) Calcium Level 8.2 mg/dL (8.5-10.1) Assessment and Plan Assessmemt and Plan Postop day 3 open reduction internal fixation left hip fracture IBS Constipation Arthritis Anxiety Plan [facility] Until then continue the following: -Wound care -Trend labs -Home meds -DVT prophylaxis -Full code -PT OT -As needed pain meds Appreciate subspecialist input Comment Review of Relevant I have reviewed the following items lauren (where applicable) has been applied. Justifications for Admission General Conditions Other justification for admit: fracture Other Justification DAVID CHINCHILLA III DO Aug 23, 2021 08:28
[2021-08-23] MEDS: SENNOSIDES/DOCUSATE 8.6/50MG TABLET. PO SCH (08:38)
[2021-08-23] MEDS ORDERED: HYDR-2765 PO (09:02)
[2021-08-23] MEDS ORDERED: TEMA15CA6 PO (09:02)
--- NOTE | 2021-08-23 09:05 | SNU/HH DC ---
DISCHARGE ORDERS DISCHARGE INFORMATION: CONDITION ON DISCHARGE: Stable CODE STATUS: Code Status: Full FPC: SNF STAY <30 DAYS: Yes HOSPICE: HOSPICE: No HOSPICE EVAL & TREAT: No LTAC: ADMIT TO LTAC: No POST DISCHARGE ORDERS: ACTIVITY ORDERS: Bedrest today DIET AFTER DISCHARGE: Cardiac TREATMENT/EQUIPMENT ORDERS: Physical Therapy For: Evalulation/Treatment Occupational Therapy For: Evaluation/Treatment DISCHARGE MEDICATIONS: Home Meds Active Scripts Temazepam (RESTORIL) 15 Mg Capsule, 1 CAP PO QHS for sleep, #30 CAP 1 Refill Prov:KARLENE CHINCHILLAL K III DO 08/23/21 Hydrocodone Bit/Acetaminophen (HYDROCODONE-APAP 7.5-325 ) 1 Tab Tablet, 1 TAB PO PRN Q4HRS PRN for MODERATE PAIN ([facility]) for 10 Days, #20 TAB Prov:KARLENE CHINCHILLAL K III DO 08/23/21 Reported Medications Sennosides/Docusate Sodium (SENNA S TABLET) 1 Each Tablet, 1 EACH PO HS for Constipation, TAB 08/19/21 Linaclotide (LINZESS) 145 Mcg Capsule, 145 MCG PO DAILY07 for Constipation, CAP 08/19/21 KARLENE CHINCHILLAL K III DO Aug 23, 2021 09:05
[2021-08-23 11:00] VITALS: BP 106/56
[2021-08-23] MEDS: ENOXAPARIN 40 MG/0.4 ML SYRINGE. SQ SCH (11:49)
--- NOTE | 2021-08-23 12:16 | NUR ---
SW following. Discussed with RN, pt accepted at [facility], discharge orders faxed to [facility]. Transportation arranged by [facility] for [id number]. RN notified. SW met with pt earlier, she was still agreeable, all questions answered. No further SW needs.
== END 2021-08-23 13:50 | DRG 482 ==
LOC: EEVIPCON 20:29 → 4 NORTH 20:29
PROVIDERS: ADMIT Internal Medicine; ATTEND Internal Medicine
PROC: 0QS704Z Reposition Left Upper Femur with Internal Fixation Device, Open Approach (ICD-10-PCS; principal; 2021-08-20 12:00)
DX: S72.142A Displaced intertrochanteric fracture of left femur, initial encounter for closed fracture (principal); F41.9 Anxiety disorder, unspecified; K58.9 Irritable bowel syndrome, unspecified; M19.90 Unspecified osteoarthritis, unspecified site; W01.0XXA Fall on same level from slipping, tripping and stumbling without subsequent striking against object, initial encounter; Z20.822 Contact with and (suspected) exposure to COVID-19; Y93.89 Activity, other specified; Y92.89 Other specified places as the place of occurrence of the external cause; Y99.8 Other external cause status; M41.86 Other forms of scoliosis, lumbar region
CPT/HCPCS: 36415; 73502; 76000; 80048; 80053; 81001; 85025; 85027; 87426; A4930; A6223; A6258; A6402; C1713; G0238; J0690; J0780; J1100; J1170; J1650; J2250; J2370; J2405; J2704; J3010; J7030; U0003; U0005; 97110-GP; 97116-GP; 97530-GP; 97535-GO; G0378